=== PATIENT | female | born 1950 | race Caucasian/White ===

== ENCOUNTER 2016-12-31 08:23 | Observation (INO) | payer BC ==
--- NOTE | ~2016-12-31 | OP ---
Record Of Operation [facility] [address] [place]. [address] NAME: BLAYNE CERVANTES : 48 STATUS : REG REF PAT#: [id number] AGE: 66 ADM/REG DATE : 12/31/16 MR#: [id number] REPORT SERV DATE: 12/31/16 DICTATED BY: CHALO SINGH DATE: 12/31/16 REPORT STATUS : Draft TRANSCRIBED BY: MODL DATE: 12/31/16 DATE OF PROCEDURE: 12/31/2016 VASCULAR PROCEDURE NOTE PRIMARY SUPERVISOR DOG LICENSE OFFICER: Chalo Singh M.D. PROCEDURE PERFORMED: Aortogram, bilateral selective renal angiogram, angioplasty and stenting of the left renal artery, placement of a 5.5 x 15 Herculink Elite RX stent post dilated with a 6 mm balloon; successful Angio-Seal closure right femoral artery. DIAGNOSTIC CARDIAC SONOGRAPHER: Chalo Singh M.D. INDICATION FOR THIS PROCEDURE: Renal artery stenosis by ultrasound and CT angiogram, hypertension, diabetes, and hyperlipidemia. TECHNIQUE: After informed consent was obtained from Ms. Cervantes, she was brought to the cardiac catheterization laboratory on the morning of 12/31/2016, in the fasting state. The time-out was performed and correct patient and operative plan were confirmed. The right coronary artery was prepped and draped in the usual sterile fashion. Local anesthesia was accomplished using 1% lidocaine. Using a modified Seldinger technique, a 5-Tajik sheath was placed in the right femoral artery with excellent arterial return. The sheath was double flushed and left in place. Next, using a 5-Tajik flush catheter, single plane abdominal aortogram was performed above the level of the renal arteries. The catheter was then exchanged for a 5-Tajik SOS II catheter and bilateral selective renal angiography was performed. At that time, decision was made to proceed with angioplasty of the left renal artery. The sheath was exchanged for a 6-Tajik sheath which was double flushed and left in place. A 6-Tajik IM guiding catheter was engaged into the left renal artery. The patient was heparinized to an ACT of greater than 200. The lesion was wired using a Thalmic Labstacore guidewire. Next, a 4 mm x 15 mm balloon was brought to the lesion site and inflation was performed with improved angiographic appearance. Next, a 5.5 x 15 Herculink Elite RX stent was brought to the lesion site and carefully positioned. The stent was then deployed at 12 atmospheres and immediately post dilated to 14 atmospheres with complete balloon and stent expansion. Followup angiography confirmed good angiographic result. There was no evidence of dissection or distal embolization. Stent appeared slightly underdilated. Postdilatation was then performed using a 6 mm x 20 mm Viatrac balloon to a maximum of 14 atmospheres throughout the stented region. Followup angiography confirmed good angiographic result. The guidewire was removed and final angiogram was performed which demonstrated good angiographic result. There was no evidence of dissection or distal embolization. The guiding catheter was disengaged and removed from the body over a guidewire. A femoral angiogram had been obtained with the micro catheter at the beginning of the procedure which demonstrated good stick in the common femoral artery thought suitable for a closure. A 6-Tajik Angio-Seal closure device was used with good Record Of Operation [facility] [id number] [place]. [address] NAME: BLAYNE CERVANTES : 48 STATUS : REG REF PAT#: [id number] AGE: 66 ADM/REG DATE : 12/31/16 MR#: [id number] REPORT SERV DATE: 12/31/16 DICTATED BY: CHALO SINGH DATE: 12/31/16 REPORT STATUS : Draft TRANSCRIBED BY: ALE DATE: 12/31/16 hemostasis. There was no bleeding and no hematoma at the conclusion of the procedure. The patient tolerated the procedure well without apparent complication. She was then returned to her room in good condition for access management. RESULTS: The abdominal aorta is patent. The right renal artery is patent with mild irregularities to approximately 10%. There was tortuosity of the right renal artery. There is good washout of the right kidney. The left renal artery has 75% proximal stenosis. There is mild calcification. The stenosis is at the origin. There is good washout of the left kidney. ACCESS: Six-Tajik RFA; six-Tajik Angio-Seal closure device. ESTIMATED BLOOD LOSS: Less than 25 mL. FLUOROSCOPY TIME: 10.1 minutes, mGy 709. CONTRAST: 90 mL nonionic. RESULTS: 1. 75% left renal artery stenosis. 2. 10% right renal artery stenosis. 3. Successful angioplasty and stenting of the left renal artery from 75% pre to 0% post. Placement of a 5.5 x 15 Herculink Elite RX stent post dilated with a 6 mm balloon. 4. Successful Angio-Seal closure device right femoral artery. PATIENT DISPOSITION: Short-stay unit. RECOMMENDATIONS: Aspirin and Plavix for at least one month and aspirin indefinitely. HERNANDEZ/ALE Chalo Singh M.D. / [id number] CC: Cristopher De Dios M.D.
[~2016-12-31 08:23] MED LIST: ASAB PO; GLUCPH PO; KLONO5 PO; KLOR-CON M2020 MEQ PO; LIPITOR20 PO; LISINOPRIL40 MG PO; MAG OXIDE250 MG PO; PREV15 PO; VITAMIN D31000 UNIT PO; VITE PO; ZYRTEC ALLGY10 MG PO
[2016-12-31 09:17] LABS: BASOPHILS 0.6 %; BASOPHILS ABSOLUTE 0.04 10/3/uL (0.0-0.16); EOSINOPHILS 8.8 %; EOSINOPHILS ABSOLUTE 0.56 10/3/uL (0.0-0.53); HEMOGLOBIN 13.9 g/dL (12.0-16.0); IMMATURE GRANULOCYTES 0.2 %; IMMATURE GRANULOCYTES ABSOLUTE 0.01 10/3/uL (0.0-0.11); LYMPHOCYTES 25.2 %; MEAN CORPUS HGB CONC 34.8 g/dL (32.0-36.0); MEAN CORPUSCULAR HEMOGLOB 31.7 pg (26.0-34.0); MEAN CORPUSCULAR VOLUME 91.3 fL (80-100); MEAN PLATELET VOLUME 10.9 fL (9.2-13.0); MONOCYTES 8.8 %; MONOCYTES ABSOLUTE 0.56 10/3/uL (0.21-1.20); NEUTROPHILS 56.4 %; NEUTROPHILS ABSOLUTE 3.58 10/3/uL (2.02-8.40); PLATELET COUNT 204 10/3/uL (150-400); RBC DISTRIBUTION WIDTH 12.4 % (12.0-16.0); RED CELL COUNT 4.38 10/6/uL (4.0-5.6); WHITE BLOOD CELLS 6.4 10/3/uL (4.5-10.5)
[2016-12-31 09:18] LABS: MANUAL DIFF NO %
[2016-12-31 09:35] LABS: A/G RATIO 1.2 (0.7-1.9); ALKALINE PHOSPHATASE 108 U/L (45-117); BUN (BLOOD UREA NITROGEN) 15 MG/DL (6-23); CALCIUM, SERUM 9.8 MG/DL (8.5-10.4); CHLORIDE, SERUM 107 MMOL/L (96-112); CO2 (CARBON DIOXIDE) 26 MMOL/L (24-34); CREATININE 0.68 MG/DL (0.55-1.02); GFR AFRICAN AMERICAN 105 ML/MIN (>=60); GFR NON AFRICAN AMERICAN 91 ML/MIN (>=60); GLOBULIN 3.3 G/DL (2.5-4.1); GLUCOSE, SERUM 122 MG/DL (60-99); POTASSIUM, SERUM 4.1 MMOL/L (3.5-5.3); SGOT(AST) 16 U/L (5-40); SGPT(ALT) 24 U/L (5-65); SODIUM, SERUM 142 MMOL/L (135-148); TOTAL BILIRUBIN 0.8 MG/DL (0-1.2); TOTAL PROTEIN 7.3 G/DL (6.0-8.5)
[2017-01-01 05:06] LABS: CALCIUM, SERUM 9.7 MG/DL (8.5-10.4); CHLORIDE, SERUM 109 MMOL/L (96-112); CO2 (CARBON DIOXIDE) 26 MMOL/L (24-34); CREATININE 0.61 MG/DL (0.55-1.02); GFR AFRICAN AMERICAN 109 ML/MIN (>=60); GFR NON AFRICAN AMERICAN 94 ML/MIN (>=60); GLUCOSE, SERUM 123 MG/DL (60-99); POTASSIUM, SERUM 4.2 MMOL/L (3.5-5.3); SODIUM, SERUM 144 MMOL/L (135-148)
[2017-01-01 05:09] LABS: BUN (BLOOD UREA NITROGEN) 9 MG/DL (6-23)
[2017-01-01 06:20] LABS: ASCORBIC ACID (UR NOT ORDER) NEG (NEG); BILIRUBIN, URINE NEGATIVE (NEG); KETONE, URINE NEGATIVE (NEG); LEUKOCYTE ESTERASE(NOT OR NEG (NEG); WBC (NOT ORDERED) (RFLEX) 1 (0-5)
[2017-01-01] MEDS ORDERED: PLAVIX PO (09:03)
== END 2017-01-01 09:56 | disposition home or self-care (01) ==
LOC: CORLMH 08:23 → SSU1 08:35
PROVIDERS: Internal Medicine Cardiovascular Disease
PROC: 047K3ZZ Dilation of Right Femoral Artery, Percutaneous Approach (ICD-10-PCS; principal; 2016-12-31)
PROC: B416YZZ Fluoroscopy of Right Renal Artery using Other Contrast (ICD-10-PCS; 2016-12-31)
PROC: B417YZZ Fluoroscopy of Left Renal Artery using Other Contrast (ICD-10-PCS; 2016-12-31)
DX: I70.1 Atherosclerosis of renal artery (principal); I15.0 Renovascular hypertension; E78.5 Hyperlipidemia, unspecified; E11.9 Type 2 diabetes mellitus without complications; I10 Essential (primary) hypertension; Z87.891 Personal history of nicotine dependence; Z88.5 Allergy status to narcotic agent; Z98.51 Tubal ligation status
CPT/HCPCS: 36252; 37236; 80048; 80053; 81001; 82962; 85025; 85347; A9270-GY; C1725; C1760; C1769; C1876; C1887; C1894; G0378; J2250; J3010; Q9966; Q9967